=== PATIENT | female | born 1980 | race American Indian/Alaskan Native ===

== ENCOUNTER 2017-07-08 07:22 | Day surgery (SDC) | payer BC ==
[2017-07-03 09:48] LABS: Basophils % (Auto) 0.7 % (0.0-1.8); Eosinophils # (Auto) 0.3 K/mm3 (0.0-0.4); Eosinophils % (Auto) 5.7 % (0.0-4.3); Hematocrit 37.1 % (30.3-42.9); Hemoglobin 12.4 gm/dl (10.1-14.3); Lymphocytes # (Auto) 1.3 K/mm3 (1.2-5.4); Lymphocytes % (Auto) 28.4 % (13.4-35.0); Mean Corpuscular HGB Conc 33 % (30-34); Mean Corpuscular Hemoglobin 28 pg (28-32); Mean Corpuscular Volume 84 fl (79-97); Monocytes # (Auto) 0.3 K/mm3 (0.0-0.8); Monocytes % (Auto) 5.9 % (0.0-7.3); Platelet Count 262 K/mm3 (140-440); Red Blood Count 4.44 M/mm3 (3.65-5.03); Red Cell Distribution Width 13.9 % (13.2-15.2)
[~2017-07-08 07:22] MED LIST: LACTATED RINGERS 1,000 ML IV SCH; VERSED IV NR
[2017-07-08] MEDS ORDERED: NACL BACTERIOSTATIC INFILTRATI ONE (08:15)
[2017-07-08] MEDS ORDERED: ANCEF/STERILE WATER 2 GM/20 ML IV NR (09:00)
[2017-07-08] MEDS ORDERED: XYLOCAINE MPF 2% ONE ×2 (10:04→10:17)
[2017-07-08] MEDS ORDERED: DILAUDID ONE (10:04)
[2017-07-08] MEDS ORDERED: DIPRIVAN 10 MG/ML IV ONE ×4 (10:04→14:47)
[2017-07-08] MEDS ORDERED: SUBLIMAZE ONE ×2 (10:16→11:31)
--- NOTE | 2017-07-08 10:33 | Anesthesia Consultation ---
Anesthesia Consult and Med Hx Date of service: 07/08/17 - Airway Anesthetic Teeth Evaluation: Good ROM Head & Neck: Adequate Mental/Hyoid Distance: Adequate Mallampati Class: Class II Intubation Access Assessment: Probably Good - Pulmonary Exam CTA: Yes - Cardiac Exam Cardiac Exam: RRR - Pre-Operative Health Status ASA Pre-Surgery Classification: ASA2 Proposed Anesthetic Plan: General - Central Nervous System Hx Psychiatric Problems: No - Other Systems Hx Alcohol Use: No Hx Substance Use: No Hx Cancer: No Hx Obesity: Yes - Additional Comments Anesthesia Medical History Comments: h/o colitis
--- NOTE | 2017-07-08 10:34 | Anesthesia Day of Surgery ---
Anesthesia Day of Surgery - Day of Surgery Patient Examined: Yes Patient H&P Reviewed: Yes Patient is NPO: Yes
[2017-07-08] MEDS ORDERED: ePHEDrine SULFATE ONE (11:03)
[2017-07-08] MEDS ORDERED: DECADRON ONE (12:24)
[2017-07-08] MEDS ORDERED: ZOFRAN ONE (12:24)
[2017-07-08] MEDS ORDERED: LACTATED RINGERS 1,000 ML ONE (12:58)
[2017-07-08] MEDS: DILAUDID IV PRN ×3 (13:38→13:58)
--- NOTE | 2017-07-08 14:28 | Post Anesthesia Evaluation ---
- Post Anesthesia Evaluation Patient Participated: Yes Airway Patent: Yes Stable Respiratory Function: Yes Nausea/Vomiting: No Temp > 96.8F: Yes Pain Manageable: Yes Adequeate Hydration: Yes Anesthesia Complications: No
[2017-07-08 14:53] VITALS: BP 114/76
--- NOTE | 2017-07-08 20:06 | Operative Report ---
PREOPERATIVE DIAGNOSIS: Macromastia. POSTOPERATIVE DIAGNOSIS: Macromastia. PROCEDURE: Bilateral reduction mammoplasty. SURGEON: Nate Erwin MD ASSOCIATE PROFESSOR OF KINESIOLOGY: Jamey Tai CSA FINDINGS: 620 g removed from each breast. DESCRIPTION OF PROCEDURE: The patient was brought to the operating room and placed on the table in supine position. Following administration of general anesthesia, bilateral breasts were prepped with Betadine solution and draped in usual sterile manner. A #10 blade scalpel was used to make a circumareolar skin incision followed by de-epithelization of inferior dermal pedicle. Modified Banegas pattern skin markings were incised with scalpel, deepened through subcutaneous fat and breast tissue using the electrocautery. Skin flaps were raised in standard manner as was fashioning of an inferior central mound pedicle. Breast tissue was resected and sent to pathology as specimen. Hemostasis controlled using electrocautery. Closure was performed over 10 mm YANETH drains using interrupted and running subcuticular 2-0 Monocryl sutures. Mastisol, Steri-Strips, and sterile dressings applied. The patient tolerated the procedure well and returned to recovery room in stable condition. JOB# [id number] FTW/NTS
== END 2017-07-08 15:30 | disposition home or self-care (01) ==
LOC: OR 07:22
PROVIDERS: ATTEND Plastic Surgery
DX: N62 Hypertrophy of breast (principal); E66.9 Obesity, unspecified; Z79.899 Other long term (current) drug therapy
CPT/HCPCS: 19318; 36415; 84703; 85025; 88305; J0690; J1100; J1170; J2250; J2405; J2704; J3010; J7120